=== PATIENT | female | born 1985 | race Hispanic/Latino ===

== ENCOUNTER 2018-06-23 17:05 | Emergency (ER) | payer OTHER ==
[2018-06-23 17:48] VITALS: BMI 28.3
[2018-06-23] MEDS ORDERED: Betamethasone Soluspan 30 mg/5mL Inj Susp IM ONE (17:48)
--- NOTE | 2018-06-23 18:43 | OBHP ---
Datetime: 06/23/2018 17:23 IP Adm Impression: , intrauterine IP Admit Plan: Observation/Evaluation Admit Comment, IP Provider: 32 yo at 27.2 wks based on LMP (12/14/2017) is presenting followin g referral from [facility]aternal [facility] for steroids _ NST. Patient was found to have a short cervix measuring at 2.3cm with no evidence of funneling as per report. Patient was evaluated for cervical le ngth measurement due to h/o leep procedure x 2 (2004, 2015). Patient denied any contractions, loss of fluid or vaginal bleeding. FM+ OBGYNhx: see above PMH: none Meds: prenatals Allergies: NKA Surghx: Leep x 2 Famhx: neg Sochx: neg for Tobacco, EtOH or drugs PE-Gen: well appearing female sitting up right Cardio: s1s2 , no mumurs Resp: clear to auscultation b/l Abd: BS+ Ext: calves nontender A/P: 32 yo at 27.2 wks. 1. Will perform NST, give one dose of celestone 12mg IM today, and discharge home. Patient informe d she needs to return tomorrow for second dose. Case discussed with Dr. Barrett Leung PGY-1 The patient was seen with the resident I agree with the note Extremities - PN: Normal Abdomen - PN: Normal Lungs - PN: Normal Heart - PN: Normal General - PN: Normal EGA AdmitDate IP: 27.2 Vital Signs Provider: Reviewed; Within Normal Limits (Annotations: Data stored by CPN on behalf of user) IP Chief Complaint: Other
[2018-06-24 02:33] VITALS: BP 110/74; PULSE 72; RESP 18; TEMP 98.2; O2SAT 99
[2018-06-24] MEDS ORDERED: Betamethasone Soluspan 30 mg/5mL Inj Susp IM ONE (21:00)
== END 2018-06-23 18:45 | disposition home or self-care (01) ==
LOC: H.EROB2 17:05 → H.L&D 18:26 → H.EROB2 18:45
DX: O26.872 Cervical shortening, second trimester (principal); Z23 Encounter for immunization; Z3A.27 27 weeks gestation of pregnancy
CPT/HCPCS: 96372; 99281; J0702

== ENCOUNTER 2018-06-24 19:55 | Emergency (ER) | payer OTHER ==
[2018-06-24 20:23] VITALS: BMI 27.4
[2018-06-24] MEDS ORDERED: Betamethasone Soluspan 30 mg/5mL Inj Susp IM ONE (20:42)
[2018-06-25 01:50] VITALS: BP 112/68; PULSE 72
== END 2018-06-24 21:30 | disposition home or self-care (01) ==
LOC: H.EROB2 19:55
DX: O26.873 Cervical shortening, third trimester (principal); Z23 Encounter for immunization; Z3A.27 27 weeks gestation of pregnancy
CPT/HCPCS: 99281; J0702

== ENCOUNTER 2018-08-29 09:41 | Inpatient (IN) | payer OTHER ==
[2018-08-29 11:02] VITALS: BMI 29.4
[2018-08-29] MEDS ORDERED: Lactated Ringer's 1,000 ML IV ONE (11:13)
[2018-08-29] MEDS ORDERED: Betamethasone Soluspan 30 mg/5mL Inj Susp IM ONE (11:39)
[2018-08-29 12:38] LABS: BASO % 0.4 % (0.0-2.0); EOS % 0.4 % (0.0-4.0); HEMOGLOBIN 13.1 g/dL (12.0-16.0); LYMPH % 17.6 % (20.0-40.0); MEAN CELL VOLUME 92.1 fl (81.0-99.0); MEAN CORPUSCULAR HGB CONC 34.8 g/dL (33.0-37.0); MEAN PLATELET VOLUME 9.2 fl (7.2-11.7); MONO # 0.6 K/uL (0.0-0.8); NEUT # 8.8 K/uL (1.8-7.0); NEUT % 76.6 % (50.0-75.0); RBC 4.1 Mil/uL (3.80-5.20); RED CELL DISTRIBUTION WIDTH 12.4 % (11.5-14.5); WHITE BLOOD COUNT 11.5 K/uL (4.8-10.8)
[2018-08-29] MEDS ORDERED: Lactated Ringer's 1,000 ML IV SCH (12:45)
[2018-08-29] MEDS ORDERED: Fentanyl/Bupivacaine HCl 250 ML EPI ONE (12:48)
[2018-08-29] MEDS ORDERED: Oxytocin 30 UNIT 30 UNITS/500 ML BAG IV ONE (14:08)
[2018-08-29] MEDS ORDERED: OXYTOCIN/0.9 % NS 20 UNIT/1,000 ML BAG IV SCH (14:15)
[2018-08-29] MEDS ORDERED: Lidocaine 2% MPF (5 ml) Inj ONE (17:09)
[2018-08-29] MEDS ORDERED: Benzocaine/Menthol SPRAY TOP PRN ×2 (17:49→21:36)
--- NOTE | 2018-08-29 18:06 | OBADHP ---
Datetime: 08/29/2018 11:55 Admit Comment, IP Provider: HPI: 32 year old presents with complaints of uterine contractions. She is 36.6 weeks by LMP confirmed with 7 wk 5 day US. This has been complicated by history of LEEP x2 with shortened cervix on US, however she has not qualified for progesterone treatment or a cerclage. She was admitted in May after the initial diagnosis of a shortened cervix and had betame thasone x2 but her cervical length improved so she was discharged home. Her contractions began about 2 hours before presentation and have been getting steadily worse since then. Denies vaginal bleeding or LOF, reporting good movement. ROS: as above, otherwise negative History G1: 2010 G2: current Medical History Denies PSH Breast augmentation LEEP x2 Family History Not significant Medications PNV Allergies NKDA Social History Denies tobacco, alcohol or drug use OBJECTIVE See exam section labs: Blood type unavailable, Rubella Immune, HIV/RPR neg, GBS neg Assessment/Plan: 32 yo at 36.6 here with spontaneous labor. - No indication for tocolysis, expectant management at this time - Had betamethasone in May, per new recommendations it is appropriate to administer a second resc ue course of steroids, since she is 1 day away from term we will only give a single dose - GBS negative - Patient would like an epidural - CBC, type and screen, Hep B Ag ordered Zoie Arboleda MD OB Fellow Attending Note: Patient was seen and discussed with OB fellow and I agree with the above assessmen t. Abdomen - PN: Normal Lungs - PN: Normal Heart - PN: Normal HEENT - PN: Normal General - PN: Normal FHR - Baseline A Provider: 140 Contraction Comments Provider: Q3-4 min Gestation - Est Wks by US: 36.6 Vital Signs Provider: Reviewed; Within Normal Limits IP Chief Complaint: Uterine contractions; Maternal discomfort NICHD Variability Prov Fetus A: Moderate 6-25bpm NICHD Accel Fetus A IP Provider: 15X15 FHR Category Provider Fetus A: Category I NICHD Decel Fetus A IP Provider: None Dilatation, Provider: 4 Effacement, Provider: 90 Station, Provider: -1 EGA AdmitDate IP: 36.6 IP Adm Impression: , intrauterine IP Admit Plan: Admit to unit; Initiate labor protocol Datetime: 06/24/2018 21:07 Extremities - PN: Normal Neurologic - PN: Normal
--- NOTE | 2018-08-29 18:06 | OBDS ---
DELIVERY PERSONNEL Delivery Doctor: Charlene Navarro MD Process Tank Tender: Neda Maldonado RN Resident: Dr Arboleda MATERNAL INFORMATION Delivery Anesthesia: Epidural Medications in Delivery: pitocin Estimated Blood Loss (ml): 300 Placenta Cultured: No Maternal Complications: None RN Comments: live boy @[id number]. skin to skin done. 9:9. Dr Amado informed of delivery. Lacera tion repaired. Pt being recovered in lr. Provider Comments: 32yo presented at 36.6 weeks in spontaneous labor. Normal spontaneous vagina l delivery of live male infact, position OA over intact perineum with epidural anesthesia. Light term inal meconium, no nuchal cord. Infant placed on maternal abdomen and delayed cord clamping was perfor med, no excessive resuscitation was required. Spontaneous delivery of placenta with 3-vessel cord. Se e laceration repair note. Comment on blood loss is appropriate for a vaginal delivery. Mom and are stable and will be transferred to post . Zoie Arboleda MD OB Fellow LABOR SUMMARY EDC: 09/20/2018 00:00 No. Babies in Womb: 1 Attempted: No Labor Anesthesia: Epidural LABOR INFORMATION Reason for Induction: Not Applicable Onset of Labor: 08/29/2018 08:00 Complete Dilatation: 08/29/2018 14:20 Oxytocin: N/A Group B Beta Strep: Done, Result Unknown Antibiotics # of Doses: 0 Steroids Given: Partial Course Reason Steroids Not Administered: Not Applicable MEMBRANES Membranes Rupture Method: Spontaneous Rupture of Membranes: 08/29/2018 14:09 Length of Rupture (hrs): 2.78 Amniotic Fluid Color: Clear Amniotic Fluid Amount: Small Amniotic Fluid Odor: Normal STAGES OF LABOR Stage 1 hrs: 6 Stage 1 min: 20 Stage 2 hrs: 2 Stage 2 min: 36 Stage 3 hrs: 0 Stage 3 min: 9 Total Time in Labor hrs: 9 Total Time in Labor min: 5 VAGINAL DELIVERY Episiotomy: None Laceration Extension: Second Degree Laceration Type: Perineal Laceration Repair Note: A 2-0 Vicryl was used to repair the laceration in the usual fashion. The lac eration was hemostatic after repair. Initial Vag Sponge Count: 5 Final Vag Sponge Count: 5 Initial Vag Sharps Count: 1 Final Vag Sharps Count: 1 Sponge Count Correct: Yes Sharps Count Correct: Yes CSECTION DELIVERY Primary Indication: N/A Secondary Indication: N/A CSection Urgency: N/A CSection Incidence: N/A Labor: N/A Elective: N/A CSection Incision: N/A BABY A INFORMATION Delivery Date/Time: 08/29/2018 16:56 Method of Delivery: Vaginal Born in Route : No : N/A Forceps: N/A Vacuum Extraction: N/A Shoulder Dystocia : No SHOULDER DYSTOCIA BABY A Delivery Date/Time: 08/29/2018 16:56 PRESENTATION/POSITION BABY A Presentation: Cephalic Cephalic Presentation: Vertex Breech Presentation: N/A PLACENTA INFORMATION BABY A Placenta Delivery Time : 08/29/2018 17:05 Placenta Method of Delivery: Spontaneous Placenta Status: Delivered SCORES BABY A Heart Rate 1 min: >100 bpm Resp Effort 1 min: Good Cry Reflex Irritability 1 min: Cough or Sneeze or Pulls Away Muscle Tone 1 min: Active Motion Color 1 min: Body [place], Extremities Blue Resuscitation Effort 1 min: N/A SCORE 1 MIN: 9 Heart Rate 5 min: >100 bpm Resp Effort 5 min: Good Cry Reflex Irritability 5 min: Cough or Sneeze or Pulls Away Muscle Tone 5 min: Active Motion Color 5 min: Body [place], Extremities Blue Resuscitation Effort 5 min: N/A SCORE 5 MIN: 9 Resuscitation Effort 10 min: N/A INFANT INFORMATION BABY A Gestational Age at Delivery: 36+6 Gestational Status: Infant Outcome : Liveborn Condition : Stable Infant Sex: Male IDENTIFICATION/MEDS BABY A ID Band Number: [id number] ID Band Location: Left Leg; Left Arm WEIGHT/LENGTH BABY A Infant Birthweight (gms): 2930 Weight (lb): 6 Weight (oz): 7 CORD INFORMATION BABY A No. Cord Vessels: 3 Nuchal Cord : N/A Nuchal Cord Other: around body x1 loose Cord Blood Taken: Yes Suction: None; Mouth ASSESSMENT BABY A Infant Complications: None Physical Findings at Delivery: Within Normal Limits Respirations: Appears Normal Substation Electrician Supervisor/ALS Called : No Infant Care By: neda maldonado rn Transferred To: Remains with Mother
--- NOTE | 2018-08-30 09:57 | OBPPN ---
Datetime: 08/30/2018 09:54 PP Pain Prov: Within normal limits PP Nausea Prov: Denies PP Flatus Prov: Yes PP Breasts Prov: Normal PP Heart Prov: Normal PP Lungs Prov: Normal PP Abdomen/Uterus Prov: Normal PP Lochia Prov: Normal PP Vulva/Perineum Prov: Normal PP CVA Tenderness Prov: Normal PP Extremities Prov: Normal PP Comments Phys Exam Prov: Fundus firm under umbilicus PP Impression Prov: Normal progression PP Plan Prov: Continue present management PP Progress Note Prov: Patient denies CP, no SOB, no N/V, tolerating PO diet, ambulating/voiding wel l, mild lochia, abdominal pain tolerable with meds A/P PPD #1 1. discharge home 2. Discharge IP PP Procedures: None Vital Signs Provider PP: Reviewed; Within Normal Limits
--- NOTE | 2018-08-31 10:06 | OBDCSUM ---
Datetime: 08/31/2018 10:05 Discharged to, Provider: Home Follow up at, Provider: [facility] Disch Instr Activity: Normal activity Disch Instr Diet: Regular Discharge Instructions, Provider: Routine instructions given Discharge Diagnosis, Provider: Term Delivered Follow up in weeks, Provider: 6 w Disch Referrals: None Contraception discussed, Prov: Yes Disch Activity Restrictions: No sexual activity; Nothing in vagina - [place], tampons, douche Datetime: 06/24/2018 21:17 Follow up at, Provider: [facility] Discharge Time: 08/31/2018 00:00 Follow up in weeks, Provider: 4-6 weeks
--- NOTE | 2018-08-31 10:06 | OBPPN ---
Datetime: 08/31/2018 10:04 PP Pain Prov: Within normal limits PP Nausea Prov: Denies PP Flatus Prov: Yes PP BM Prov: Yes PP Breasts Prov: Normal PP Heart Prov: Normal PP Lungs Prov: Normal PP Abdomen/Uterus Prov: Normal PP Lochia Prov: Normal PP Vulva/Perineum Prov: Normal PP CVA Tenderness Prov: Normal PP Extremities Prov: Normal PP Impression Prov: Normal progression PP Plan Prov: Discharge PP Progress Note Prov: She feels fine ready to go home. A; S/P day 2 PLAN: dishcarge home and f/u 6w Vital Signs Provider PP: Reviewed; Within Normal Limits
[2018-08-31 17:33] VITALS: BP 108/68; PULSE 76; RESP 20; TEMP 98.2; O2SAT 100
== END 2018-08-31 12:45 | disposition home or self-care (01) | DRG 806 ==
LOC: H.EROB2 09:41 → H.L&D 11:13 → H.OB/GYN 21:38
PROVIDERS: ADMIT Obstetrics & Gynecology; ATTEND Obstetrics & Gynecology
PROC: 10E0XZZ Delivery of Products of Conception, External Approach (ICD-10-PCS; principal; 2018-08-29)
PROC: 0KQM0ZZ Repair Perineum Muscle, Open Approach (ICD-10-PCS; 2018-08-29)
PROC: 4A1HXCZ Monitoring of Products of Conception, Cardiac Rate, External Approach (ICD-10-PCS; 2018-08-29)
DX: O60.14X0 Preterm labor third trimester with preterm delivery third trimester, not applicable or unspecified (principal); O26.873 Cervical shortening, third trimester; Z37.0 Single live birth; O70.1 Second degree perineal laceration during delivery; O77.0 Labor and delivery complicated by meconium in amniotic fluid; Z3A.36 36 weeks gestation of pregnancy; O69.81X0 Labor and delivery complicated by cord around neck, without compression, not applicable or unspecified